=== PATIENT | female | born 1970 | race Hispanic/Latino ===

== ENCOUNTER 2017-09-12 10:29 | Day surgery (SDC) | payer OTHER ==
[2017-09-05 14:09] VITALS: BMI 34.8
--- NOTE | 2017-09-12 12:09 | CP.PCM.PN ---
Subjective - Date & Time of Evaluation Date of Evaluation: 09/12/17 Time of Evaluation: 12:07 - Subjective Subjective: 47 year old female seen preoperatively for fasciotomy of right plantar fascia with Dr. Mills today. Patient states that she has had the pain in this foot for roughly a year and a half and rates it at 4/10 today. States that she has tried orthotics, injections and stretching exercises with no relief of symptoms. Denies any further pedal complaints at this time. Is AAO x 3 and NAD at time of visit. States that she has been NPO since 11 oclock last night. Denies any adverse reactions to anesthesia during her past surgeries. Denies any recent N/V/F/C/CP/SOB/D/posterior calf pain when squeezed. Objective - Vital Signs/Intake and Output Vital Signs (last 24 hours): Temp Pulse Resp BP Pulse Ox 98.7 F 79 20 137/89 97 09/12/17 10:49 09/12/17 11:11 09/12/17 10:49 09/12/17 10:49 09/12/17 10:49 - Constitutional Appears: Well, Non-toxic, No Acute Distress - Extremities Exam Additional comments: RLE focused exam: Vasc: DP/PT pulses palpable 2/4 b/l. Skin temperature warm to warm from proximal to distal. CFT < 3 seconds to all digits b/l. No edema noted b/l Neuro: Epicritic and protective sensation grossly intact b/l Derm: No open lesions, wounds, maceration, xerosis, abnormal pigmentation or abnormal growths noted b/l. Nails well manicured and normotrophic 1-10 b/l MSK: POP to right plantar heel at level of plantar fascial insertion into the calcaneus - Neurological Exam Neurological Exam: Alert, Awake, Oriented x3 - Psychiatric Exam Psychiatric exam: Normal Affect, Normal Mood Assessment and Plan - Assessment and Plan (Free Text) Assessment: 47 year old female seen preoperatively for fasciotomy of right plantar fascia with Dr. Mills today Plan: Pt was seen and examined in SDS Pt NPO status was confirmed All pre-op testing and clearance in chart Pt has exhausted all conservative treatment at this time and is opting for surgical intervention Pt was explained procedure and post-operative course All pt's questions were answered to satisfaction No guarantees were made Pt understands all risks, benefits and complications of procedure Pt will follow-up with Dr. Mills within 1 week of surgery
--- NOTE | 2017-09-12 12:12 | CP.SDSHP ---
Same Day Surgery H & P - History Proposed Procedure: Faciotomy of plantar fascia, right foot Pre-Op Diagnosis: Painful plantar fasciitis of right foot - Previous Medical/Surgical History Pain: 4.Moderate Pain Previous Surgical History: Bunion procedure, fasciotomy of left foot - Allergies Allergies: Allergies Sulfa (Sulfonamide Antibiotics) Allergy (Verified 09/12/17 11:17) agitated - Physical Exam Vital Signs: Vital Signs 09/12/17 09/12/17 10:49 11:11 Temperature 98.7 F Pulse Rate 79 79 Respiratory 20 Rate Blood Pressure 137/89 O2 Sat by Pulse 97 Oximetry Mental Status: Alert & Oriented x3 - {Optional Preform as Required} Integument: WNL Ortho: Other (Pain on palpation of plantar fascial insertion site into calcaneus ) - Impression Pt. Evaluated Today:Candidate for Anesthesia & Procedure: Yes - Date & Time Date: 09/12/17 Time: 12:12 Short Stay Discharge - Short Stay Discharge Admitting Diagnosis/Reason for Visit: M72.2 Disposition: HOME/ ROUTINE Referrals: Aidan Mills DPM [Primary Care Provider] -
[2017-09-12] MEDS ORDERED: Bupivacaine 0.5% Inj(30mL) IJ ONE (12:13)
[2017-09-12] MEDS ORDERED: ceFAZolin 1 GM in Sodium Chloride 0.9% 100 ML IVPB ONE (12:13)
[2017-09-12] MEDS ORDERED: Lidocaine 1% Inj (20ml) IJ ONE ×2 (12:13→13:05)
[2017-09-12] MEDS ORDERED: Sodium Chloride 0.9% 1,000 ML IV SCH (12:15)
[2017-09-12] MEDS ORDERED: Propofol 10 mg/ml Inj (20 ML) ONE (12:39)
[2017-09-12] MEDS ORDERED: Midazolam 2 MG/2 ML VIAL ONE (12:40)
[2017-09-12] MEDS ORDERED: Ketamine 50 mg/ml Inj (10 ml) ONE (12:40)
[2017-09-12] MEDS ORDERED: Lactated Ringer's 1,000 ML IV ONE (12:51)
[2017-09-12] MEDS ORDERED: Bupivacaine 0.5% 50 ML IJ ONE (13:05)
[2017-09-12] MEDS ORDERED: Oxycodone/Acetaminophen 5/325 mg Tab PO PRN ×2 (13:26)
--- NOTE | 2017-09-12 13:29 | PCM.SURG1 ---
Surgeon's Initial Post Op Note - Surgeon's Notes Surgeon: Dr. Mills, DPM Road Grader: Yola Rick, PGY 2 Type of Anesthesia: IV Sedation, Local Anesthesia Administered By: Dr. Doan Pre-Operative Diagnosis: Plantar fasciitis, right foot Operative Findings: See dictation report. M- 4-0 prolene. I- 20 cc 1:1 1% lidocaine plain, 0.5% marcaine plain Post-Operative Diagnosis: Same Operation Performed: Plantar fasciotomy, right foot Specimen/Specimens Removed: none Estimated Blood Loss: EBL {In ML}: 0 Blood Products Given: N/A Drains Used: No Drains Post-Op Condition: Good Date of Surgery/Procedure: 09/12/17 Time of Surgery/Procedure: 13:29
[2017-09-12] MEDS ORDERED: Lactated Ringer's 1,000 ML IV SCH (13:30)
[2017-09-12] MEDS ORDERED: Oxycodone/Acetaminophen 5/325 mg Tab PO ONE (15:45)
[2017-09-12 15:49] VITALS: RESP 18; TEMP 98
[2017-09-12 17:07] VITALS: BP 141/76; PULSE 77; O2SAT 98
--- NOTE | 2017-09-12 23:18 | OP ---
PROCEDURE DATE: 09/12/2017 PREOPERATIVE DIAGNOSIS: Right foot chronic plantar fasciitis. POSTOPERATIVE DIAGNOSIS: Right foot chronic plantar fasciitis. PROCEDURE PERFORMED: Right foot plantar fasciectomy. SURGEON: Aidan Mills DPM COOK APPRENTICE PASTRY: Yola Rick DPM, PGY-2 ANESTHESIOLOGIST: Dr. Doan. TYPE OF ANESTHESIA: IV sedation with local. INDICATIONS: The patient is a 47-year-old female with the above-mentioned diagnosis. The patient is being treated by Dr. Mills in his office on an outpatient basis where she has exhausted multiple forms of conservative treatment at this time and now requires surgical intervention. All risks, benefits and possible complications for surgical postprocedure have been explained to the patient at length. All questions were answered. The patient verbalized understanding and wished to proceed. No guarantees were given nor implied. Consent was signed and the n.p.o. status was confirmed prior to bringing the patient to the operating room. OPERATIVE PROCEDURE: The patient was brought into the operating room and placed on the operating room table in a supine position. Once IV sedation was achieved, a local injection of 20 mL of 1:1 mixture of 1% lidocaine plain and 0.5% Marcaine plain was given in a local block fashion to the right foot. Once local anesthesia was achieved, the foot was then prepped and draped in the normal sterile manner, and the procedure began. PROCEDURE #1: Right foot plantar fasciectomy: Attention was directed to the plantar medial aspect of the right foot, where under the use of C-arm guidance and 18 gauge needle was used to visualize the location of the plantar medial tubercle and the plantar heel spur on the calcaneus. Once this was visualized, using a #10 blade the skin about a 1 cm transverse incision was made. Using a #15 blade the subcutaneous tissue was then further incised using a #15 blade with care being taken to identify and retract all vital neurovascular structures. All bleeders were cauterized and ligated as necessary. Using a the medial band of plantar fascia and the medial aspect of the central band of the plantar fascia was then released using a #15 blade. Next, the surgical incision site was then copiously irrigated with sterile normal saline. The skin was then reapproximated using 4-0 Prolene. The postoperative dressing including Betadine-soaked Adaptic, 4 x 4 gauze, Leola and an Cecilio bandage was applied to the right foot. POSTOPERATIVE CONDITION: The patient tolerated the anesthesia and procedure well and was escorted to the recovery room with vital signs stable and neurovascular status intact to the right foot. The patient will follow up with Dr. Mills in his office on an outpatient basis. Yola Rick DPM Aidan Mills DPM
== END 2017-09-12 16:15 | disposition home or self-care (01) ==
LOC: H.OPSURG 10:29
PROVIDERS: ATTEND Podiatrist Foot & Ankle Surgery
DX: M72.2 Plantar fascial fibromatosis (principal); Z88.2 Allergy status to sulfonamides
CPT/HCPCS: 28060; 97116; 97161; G8978; G8979; G8980; J0690; J2001; J2250; J2704; J3010; J7030; J7120